=== PATIENT | female | born 1950 | race Caucasian/White ===

== ENCOUNTER → 2018-06-06 | Outpatient (CLI) | payer MEDICARE, OTHER ==
[2016-06-02 09:43] VITALS: BP 109/64
[~2018-06-06] MED LIST: ALEN70TA3 PO; BUPR300T3 PO; LEVO25TA55 PO; PNV1TABL25 PO
--- NOTE | 2018-06-06 10:54 | RAD ---
EXAM: Abdomen sonogram complete. HISTORY: Pain. TECHNIQUE: Sonographic imaging of the abdomen was performed. COMPARISON: None. FINDINGS: The liver is normal in size. No focal hepatic lesion is seen. The common bile duct is normal in caliber. There is cholelithiasis. The kidneys are normal in size. There is no hydronephrosis. There is no solid or cystic renal lesion. The pancreas is unremarkable. The spleen is obscured due to bowel gas. The aorta and inferior vena cava are unremarkable. IMPRESSION: 1. Cholelithiasis. 2. Obscured spleen due to bowel gas. 3. Otherwise, unremarkable abdomen sonogram. Electronically signed by: Catina Romero MD (06/06/2018 10:51 AM) [facility]
== END | disposition home or self-care (01) ==
LOC: US 08:19
PROVIDERS: ATTEND Family Medicine
DX: K80.20 Calculus of gallbladder without cholecystitis without obstruction (principal)
CPT/HCPCS: 76700

== ENCOUNTER → 2020-07-26 | Outpatient (CLI) | payer MEDICARE, OTHER ==
[2016-06-02 09:43] VITALS: BP 109/64
--- NOTE | 2020-07-26 10:13 | KCIC ---
CT LOW DOSE LUNG SCREENING INDICATION: Lung cancer screening, amoker of 40 yrs., 1 pk/day. COMPARISON STUDY: None. TECHNIQUE: Unenhanced axial images were obtained through the lungs and upper abdomen using low dose technique. Coronal and sagittal multiplanar reformatted images were also obtained. PQRS compliance statement: One or more of the following individualized dose reduction techniques were utilized for this examination: 1. Automated exposure control 2. Adjustment of the mA and/or kV according to patient size 3. Use of iterative reconstruction technique FINDINGS: Lung Nodules: Middle lobe elongate perifissural nodule with triangular morphology, consistent with intrapulmonary lymphoid tissue. No suspicious pulmonary nodules. Lungs and Airways: No pulmonary mass or consolidation. Normal central airways. Pleura: Normal pleural spaces. Heart and Mediastinum: The visualized portions of the thyroid gland are atrophic. No axillary or supraclavicular lymphadenopathy. No mediastinal, hilar or retrocrural lymphadenopathy. Normal cardiac size. No pericardial effusion. Coronary artery atherosclerotic disease. Atherosclerosis of the thoracic aorta. Qlpdg-cw-boizdyem sized hiatal hernia. Abdomen: The visualized abdominal organs demonstrate no abnormality. Bones and Soft Tissues: Degenerative changes of the spine. IMPRESSION: 1. No suspicious pulmonary nodules. Lung-RADS Category: 1 Management Recommendation: Follow up low-dose chest CT in one year. 2. Small to moderate-sized hiatal hernia. Electronically signed by: Felipe Pollock MD (07/26/2020 10:10 AM) [id number]
== END ==
LOC: KCIC CT 09:03
PROVIDERS: ATTEND Family Medicine
DX: Z12.2 Encounter for screening for malignant neoplasm of respiratory organs (principal); R91.1 Solitary pulmonary nodule; I25.10 Atherosclerotic heart disease of native coronary artery without angina pectoris; K44.9 Diaphragmatic hernia without obstruction or gangrene; Z87.891 Personal history of nicotine dependence
CPT/HCPCS: G0297

== ENCOUNTER → 2021-06-15 | Day surgery (SDC) | payer MEDICARE ==
[~2021-06-15] VITALS: Ht 175.3 cm; Wt 70.0 kg
[~2021-06-15] MED LIST changes: +BUPR300T92 PO; +IV RINGERS,LACTATED 1000ML 1,000 ML IV ONE; +MV-M1TAB7 PO; +PROPOFOL 10 MG/ML (20ML) VIAL. IV ONE
[2021-06-15 07:00] VITALS: BP 146/89
[2021-06-15 07:56] VITALS: BP 144/87
--- NOTE | 2021-06-15 19:59 | HP ---
DATE OF SERVICE: 06/15/2021 ADMIT DATE: 06/15/2021 REFERRING PHYSICIAN: Dilshad Bolanos MD REASON FOR ADMISSION: History of colon polyps. HISTORY OF PRESENT ILLNESS: A 71-year-old female with past medical history significant for hypothyroidism, osteoarthrosis, and history of colonic polyps, seen for interval colonoscopy. Last exam was approximately 5 years ago. Bowel habits are regular without diarrhea, constipation, melena or hematochezia. No family history of colon cancer is encountered. Weight and appetite are stable. She is otherwise without additional complaints. PAST MEDICAL HISTORY: Hypothyroidism, history of colonic polyps, osteoarthrosis. ALLERGIES: None. MEDICATIONS: Include Wellbutrin, levothyroxine, multivitamin. FAMILY HISTORY: Significant for hypertension with both parents. SOCIAL HISTORY: She is a social drinker and smoker. PAST SURGICAL HISTORY: Significant for eye surgery, open reduction internal fixation of the leg and tonsillectomy. REVIEW OF SYSTEMS: Per records. PHYSICAL EXAMINATION: VITAL SIGNS: Temperature is 98, pulse 73, respirations 20. LUNGS: Clear. CARDIOVASCULAR: Reveals an S1, S2, without S3, S4 or appreciable murmur. ABDOMEN: With a soft abdomen, normal bowel sounds, no appreciable hepatosplenomegaly. EXTREMITIES: Reveals no cyanosis, clubbing or edema. IMPRESSION: History of colonic polyps. Surveillance exam is recommended at this time. Risks and benefits have been previously discussed with the patient including the risks of perforation with operation. She is willing to proceed. I thank, Dr. Bolanos, for allowing us to consult and participate in this patient's care. RACQUEL/COMPA/CHAN DR: Jennifer TID: [id number]
--- NOTE | 2021-06-16 18:06 | PATHOLOGY ---
[facility] Accession Number: [id number] . 01 Material submitted: . rectum - RECTAL POLYP . 01 Clinical history: . CRC COLONOSCOPY . 02 Diagnosis: Colorectal biopsies, rectal polyps: - Hyperplastic polyps. 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 02 Comment: There are no adenomatous changes or evidence of malignancy. ([facility]; 06/16/2021) . 02 Electronically signed: . Kurt Hirsch MD, Pathologist NPI- [id number] . 01 Gross description: . The specimen is submitted in formalin, labeled "Quick, Purnima, rectal polyp". Received are multiple segments of pale no tissue ranging in size from 0.2 to 0.5 cm in maximum dimensions. The specimen is submitted entirely in cassette A1. ([facility]; 06/15/2021) NRI/NRI 06/15/20211 Local . 02 Pathologist provided ICD-10: K62.1 . 02 CPT . 815329 Specimen Comment: A courtesy copy of this report has been sent to [phone] Specimen Comment: [phone], Specimen Comment: Report sent to / DR BROWN Specimen Comment: A duplicate report has been generated due to demographic updates. Performed at: 01 [facility] [address], [place] [id number] MD Eddie Beasley MD Phone: [phone] Performed at: 02 [facility] [address] [place], [place] [id number] MD Kurt Hirsch MD Phone: [phone]
== END | disposition home or self-care (01) ==
LOC: SURG 06:31
PROVIDERS: ATTEND Internal Medicine Gastroenterology
DX: Z12.11 Encounter for screening for malignant neoplasm of colon (principal); K64.0 First degree hemorrhoids; K57.30 Diverticulosis of large intestine without perforation or abscess without bleeding; K62.1 Rectal polyp; K63.89 Other specified diseases of intestine; I10 Essential (primary) hypertension; E03.9 Hypothyroidism, unspecified; F32.9 Major depressive disorder, single episode, unspecified; Z86.010 Personal history of colon polyps; Z85.828 Personal history of other malignant neoplasm of skin; Z79.899 Other long term (current) drug therapy; Z98.890 Other specified postprocedural states; Z82.49 Family history of ischemic heart disease and other diseases of the circulatory system
CPT/HCPCS: 45380; J2704; 88305